=== PATIENT | male | born 1960 | race Two or more races ===

== ENCOUNTER 2021-09-01 12:57 | Outpatient (CLI) | payer OTHER | END 2021-09-01 13:04 | disposition home or self-care (01) | LOC: LAB 12:57 | PROVIDERS: ATTEND Urology | DX: D35.01 Benign neoplasm of right adrenal gland (principal) ==

== ENCOUNTER 2021-09-14 07:57 | Outpatient (CLI) | payer OTHER | END 2021-09-14 08:17 | disposition home or self-care (01) | LOC: TOM 07:57 | PROVIDERS: ATTEND Urology | DX: D35.01 Benign neoplasm of right adrenal gland (principal) | CPT/HCPCS: 74170; Q9965 ==